=== PATIENT | female | born 1965 | race African-American/Black ===

== ENCOUNTER 2017-05-13 03:25 | Emergency (ER) | payer MEDICAID ==
[~2017-05-13] VITALS: Ht 157.5 cm; Wt 67.0 kg
[2017-05-13] MEDS: MORPHINE SULFATE 10 MG/ML CPJ IM ONE (06:32)
[2017-05-13] MEDS: ONDANSETRON 4MG ODT PO ONE (06:33)
[2017-05-13 06:58] LABS: CLARITY URINE CLOUDY (CLEAR); COLOR URINE YELLOW (YELLOW); KETONES URINE NEGATIVE (NEGATIVE); LEUKOCYTE ESTERASE URINE 3+ (NEGATIVE); NITRITE URINE NEGATIVE (NEGATIVE); OCCULT BLOOD URINE 2+ (NEGATIVE); PH URINE 6.5 (4.5-8.0); PROTEIN URINE 3+ (NEGATIVE); SPECIFIC GRAVITY URINE 1.013 (1.005-1.030); UROBILINOGEN URINE 0.2 E.U./dL (0.2-1.0)
[2017-05-13 07:30] VITALS: BP 157/105
== END 2017-05-13 08:00 | disposition home or self-care (01) ==
LOC: ER 03:25
DX: G43.909 Migraine, unspecified, not intractable, without status migrainosus (principal); N39.0 Urinary tract infection, site not specified; J06.9 Acute upper respiratory infection, unspecified; I10 Essential (primary) hypertension; Z94.0 Kidney transplant status
CPT/HCPCS: 81001; 81025; 96372; 99283; J2270; J7030; Q0162; Z7610